=== PATIENT | male | born 1980 | race Caucasian/White ===

== ENCOUNTER → 2020-02-08 | Day surgery (SDC) | payer OTHER ==
[~2020-02-08] MED LIST: ACETAMINOPHEN 1000 MG/100 ML IV ONE; BUPIVACAINE 0.25% 30ML SDV INJ ONE; CEFTRIAXONE SOD 1 GM/NS 50 ML 50 ML IV ONE; DEXAMETHASONE SOD PHOS INJ 4 MG/ML VIAL ONE; LIDOCAINE HCL 2% LOCAL INJ 5 ML SDV VIAL INJ ONE; ONDANSETRON HCL INJ 2MG/ML 2ML 2 MG/ML VIAL ONE; PROPOFOL IV EMULSION 10 MG/ML 20 ML VIAL ONE; SEVOFLURANE INHAL SOLN 250 ML PEN BTL ONE; SUMATRIPTAN SUC25 MG PO
[2020-02-08 10:20] VITALS: BP 117/75
--- NOTE | 2020-02-08 10:27 | Operative Report ---
DATE OF PROCEDURE: 02/08/2020 SURGEON: Yevgeniy Kc MD PREOPERATIVE DIAGNOSIS: Fecundity POSTOPERATIVE DIAGNOSIS: Fecundity OPERATIVE PROCEDURE: Bilateral segmental vasectomy. ANESTHESIA: General anesthesia. ESTIMATED BLOOD LOSS: Minimal. INDICATIONS: Mr. Checo Maldonado is a 39-year-old gentleman, who desires no further children. He now presents for definitive surgical management of this problem. PROCEDURE IN DETAIL: The patient was brought into the operating room, placed in supine position and after initiation of general anesthesia, was prepped and draped in the usual sterile fashion. The right vas was palpable through the right hemiscrotum and a 1 cm incision was made over this location. The vas was then dissected from the surrounding structures, clipped proximally and distally and a section approximately 1.5 cm was removed. The cut edges of the vasal segment were fulgurated with electrocautery device proximally and distally. The vas was then copiously infiltrated with 0.25% Marcaine and allowed to retract back into the scrotum. The scrotal skin was reapproximated closed using a [id number] chromic suture. A similar procedure was performed on the left side where again the vasal segment was dissected from the surrounding structures. It was clipped proximally and distally and a section approximately centimeter and a half was removed. Both vasal segments were sent to Pathology for microscopic analysis. Both cut ends were fulgurated using electrocautery device. Again, the skin was closed with a [id number] chromic suture. The wound was then cleaned and dried and covered with Telfa gauze and placed in a scrotal support. Anesthesia was reversed and the patient was transferred to a bed and taken to the postanesthesia care unit in good condition. Of note, the needle and instrument count was correct at the conclusion of the case. Yevgeniy Kc MD HLW/MODL /[id number] MTDD
== END | disposition home or self-care (01) ==
LOC: OR 06:15
PROVIDERS: ATTEND Urology
DX: Z30.2 Encounter for sterilization (principal); Z68.37 Body mass index [BMI] 37.0-37.9, adult; G47.33 Obstructive sleep apnea (adult) (pediatric); Z01.812 Encounter for preprocedural laboratory examination; Z11.59 Encounter for screening for other viral diseases
CPT/HCPCS: 55250; 87635; 88302; J0131; J0696; J1100; J2001; J2405; J2704